=== PATIENT | female | born 1965 | race Caucasian/White ===

== ENCOUNTER 2022-12-06 08:05 | Day surgery (SDC) | payer OTHER ==
[2022-12-06] MEDS ORDERED: BUPIVACAINE 0.5% VIAL IJ ONE (08:06)
[2022-12-06] MEDS ORDERED: Depo-Medrol 40 MG/ML IM ONE (08:06)
[2022-12-06] MEDS ORDERED: DIPRIVAN 200 MG/20 ML IV ONE (09:44)
[2022-12-06] MEDS ORDERED: Lactated Ringers 1,000 ML IV ONE (10:44)
--- NOTE | 2022-12-06 12:24 | XRAY ---
Indication: Left shoulder and subacromial bursa injection. Intraoperative fluoroscopy provided for 20 seconds. 3 digital spot image submitted for interpretation demonstrates medial tip projecting over left glenohumeral joint superiorly. Second needle tip subacromial. Small amount of contrast injected for needle tip placement. Correlate with intraoperative findings/report.
--- NOTE | 2022-12-06 12:24 | XRAY ---
Indication: Right shoulder and subacromial bursa injection. Intraoperative fluoroscopy provided for 16 seconds. 2 digital spot image submitted for interpretation demonstrates medial tip projecting over right glenohumeral joint superiorly. Second needle tip subacromial. Small amount of contrast injected for needle tip placement. Correlate with intraoperative findings/report.
--- NOTE | 2022-12-06 12:26 | XRAY ---
16 seconds of fluoroscopy was used in surgery for a right intra-articular shoulder and subacromial bursa injection.
--- NOTE | 2022-12-06 12:27 | XRAY ---
20 seconds of fluoroscopy was used in surgery for a left intra-articular shoulder and subacromial bursa injection.
== END 2022-12-06 10:15 | disposition home or self-care (01) ==
LOC: SDC-PAIN 08:05
PROVIDERS: ATTEND Psychiatry & Neurology Pain Medicine
DX: M19.012 Primary osteoarthritis, left shoulder (principal); M19.011 Primary osteoarthritis, right shoulder; M75.52 Bursitis of left shoulder; M75.51 Bursitis of right shoulder; E11.9 Type 2 diabetes mellitus without complications; Z79.899 Other long term (current) drug therapy
CPT/HCPCS: 20610; 73030; 77002; 82947; J1030; J2704

== ENCOUNTER 2023-03-14 07:25 | Day surgery (SDC) | payer OTHER ==
[2023-03-14] MEDS ORDERED: Depo-Medrol 40 MG/ML IM ONE (07:26)
[2023-03-14] MEDS ORDERED: BUPIVACAINE 0.5% VIAL IJ ONE (07:26)
[2023-03-14] MEDS ORDERED: DIPRIVAN 200 MG/20 ML IV ONE (09:12)
[2023-03-14] MEDS ORDERED: Lactated Ringers 1,000 ML IV ONE (09:28)
--- NOTE | 2023-03-14 10:04 | XRAY ---
Indication: Right hip injection. Intraoperative fluoroscopy provided for 22 seconds. Single digital spot image submitted for interpretation demonstrates needle tip projecting lateral to the right femur neck. Small amount of contrast injected for needle tip placement. Correlate with intraoperative findings/report.
--- NOTE | 2023-03-14 10:04 | XRAY ---
22 seconds of fluoroscopy was used in surgery for a right intra-articular hip injection.
== END 2023-03-14 09:41 | disposition home or self-care (01) ==
LOC: SDC-PAIN 07:25
PROVIDERS: ATTEND Psychiatry & Neurology Pain Medicine
DX: M16.11 Unilateral primary osteoarthritis, right hip (principal); E11.9 Type 2 diabetes mellitus without complications; Z79.899 Other long term (current) drug therapy
CPT/HCPCS: 20610; 73501; 77002; 82947; J1030; J2704; Q9966

== ENCOUNTER 2023-05-30 07:50 | Day surgery (SDC) | payer OTHER ==
[2023-05-30] MEDS ORDERED: Depo-Medrol 40 MG/ML IM ONE (07:51)
[2023-05-30] MEDS ORDERED: BUPIVACAINE 0.5% VIAL IJ ONE (07:51)
[2023-05-30] MEDS ORDERED: DIPRIVAN 200 MG/20 ML IV ONE (09:36)
[2023-05-30] MEDS ORDERED: Lactated Ringers 1,000 ML IV ONE (10:22)
--- NOTE | 2023-05-30 11:30 | XRAY ---
Indication: Bilateral greater trochanter bursa injection. Intraoperative fluoroscopy provided for 13 seconds. 3 digital spot image submitted for interpretation demonstrates needle tip projecting lateral to left and right greater trochanters. Small amount of contrast injected for both needle tip placement. Correlate with intraoperative findings/report.
--- NOTE | 2023-05-30 12:06 | XRAY ---
13 seconds of fluoroscopy was used in surgery for a bilateral greater trochanteric bursa injection.
== END 2023-05-30 10:05 | disposition home or self-care (01) ==
LOC: SDC-PAIN 07:50
PROVIDERS: ATTEND Psychiatry & Neurology Pain Medicine
DX: M70.62 Trochanteric bursitis, left hip (principal); M70.61 Trochanteric bursitis, right hip; E11.9 Type 2 diabetes mellitus without complications
CPT/HCPCS: 20610; 73521; 77002; 82947; J1030; J2704; Q9966

== ENCOUNTER 2023-06-27 06:46 | Day surgery (SDC) | payer OTHER ==
[2023-06-27] MEDS ORDERED: BUPIVACAINE 0.5% VIAL IJ ONE (06:47)
[2023-06-27] MEDS ORDERED: Depo-Medrol 40 MG/ML IM ONE (06:47)
[2023-06-27] MEDS ORDERED: DIPRIVAN 200 MG/20 ML IV ONE (08:35)
[2023-06-27] MEDS ORDERED: Lactated Ringers 1,000 ML IV ONE (10:54)
--- NOTE | 2023-06-27 11:41 | XRAY ---
Indication: Right knee injection. Intraoperative fluoroscopy provided for 10 seconds. Single digital spot image submitted for interpretation demonstrates needle tip projecting over right femur intracondylar notch. Small amount of contrast injected for needle tip placement. Correlate with intraoperative findings/report.
--- NOTE | 2023-06-27 11:41 | XRAY ---
Indication: Left knee injection. Intraoperative fluoroscopy provided for 5 seconds. Single digital spot image submitted for interpretation demonstrates needle tip projecting over left femur intracondylar notch. Small amount of contrast injected for needle tip placement. Correlate with intraoperative findings/report.
--- NOTE | 2023-06-27 13:07 | XRAY ---
10 seconds of fluoroscopy was used in surgery for a right intra-articular knee injection.
--- NOTE | 2023-06-27 13:08 | XRAY ---
5 seconds of fluoroscopy was used in surgery for a left intra-articular knee injection.
== END 2023-06-27 09:05 | disposition home or self-care (01) ==
LOC: SDC-PAIN 06:46
PROVIDERS: ATTEND Psychiatry & Neurology Pain Medicine
DX: M17.0 Bilateral primary osteoarthritis of knee (principal); E11.9 Type 2 diabetes mellitus without complications
CPT/HCPCS: 20610; 73560; 77002; 82947; J1030; J2704; Q9966

== ENCOUNTER 2023-12-12 07:06 | Day surgery (SDC) | payer OTHER ==
[2023-12-12] MEDS ORDERED: Depo-Medrol 40 MG/ML IM ONE (07:07)
[2023-12-12] MEDS ORDERED: BUPIVACAINE 0.5% VIAL IJ ONE (07:07)
[2023-12-12] MEDS ORDERED: DIPRIVAN 200 MG/20 ML IV ONE (08:17)
--- NOTE | 2023-12-12 09:31 | XRAY ---
Indication: Left shoulder and subacromial bursa injection. Intraoperative fluoroscopy provided for 18 seconds. 2 digital spot images submitted for interpretation demonstrates needle tip projecting over the left glenohumeral joint superiorly. Second needle tip subacromial. Small amount of contrast injected for needle tip placement. Correlate with intraoperative findings/report.
--- NOTE | 2023-12-12 09:31 | XRAY ---
Indication: Right shoulder and subacromial bursa injection. Intraoperative fluoroscopy provided for 14 seconds. 2 digital spot images submitted for interpretation demonstrates needle tip projecting over the right glenohumeral joint superiorly. Second needle tip subacromial. Small amount of contrast injected for needle tip placement. Correlate with intraoperative findings/report.
[2023-12-12] MEDS ORDERED: Lactated Ringers 1,000 ML IV ONE (09:50)
--- NOTE | 2023-12-12 10:28 | XRAY ---
14 seconds of fluoroscopy was used in surgery for a right intra-articular shoulder and subacromial bursa injection.
--- NOTE | 2023-12-12 10:28 | XRAY ---
18 seconds of fluoroscopy was used in surgery for a left intra-articular shoulder and subacromial bursa injection.
== END 2023-12-12 08:50 | disposition home or self-care (01) ==
LOC: SDC-PAIN 07:06
PROVIDERS: ATTEND Psychiatry & Neurology Pain Medicine
DX: M19.012 Primary osteoarthritis, left shoulder (principal); M19.011 Primary osteoarthritis, right shoulder; M75.52 Bursitis of left shoulder; M75.51 Bursitis of right shoulder; E11.9 Type 2 diabetes mellitus without complications
CPT/HCPCS: 20610; 73030; 77002; 82947; J2704; Q9966

== ENCOUNTER 2024-03-12 06:48 | Day surgery (SDC) | payer OTHER ==
[2024-03-12] MEDS ORDERED: Depo-Medrol 40 MG/ML IM ONE (06:49)
[2024-03-12] MEDS ORDERED: BUPIVACAINE 0.5% VIAL IJ ONE (06:49)
[2024-03-12] MEDS ORDERED: Xylocaine-Mpf 2% 5 Ml Vial ONE (08:27)
[2024-03-12] MEDS ORDERED: DIPRIVAN 200 MG/20 ML IV ONE (08:27)
--- NOTE | 2024-03-12 19:04 | XRAY ---
Indication: Left knee injection. Intraoperative fluoroscopy provided for 5 seconds. Single digital spot image submitted for interpretation demonstrates needle tip projecting over left femur intercondylar notch. Small amount of contrast injected for all needle tip placement. Correlate with intraoperative findings/report.
--- NOTE | 2024-03-12 19:04 | XRAY ---
Indication: Right knee injection. Intraoperative fluoroscopy provided for 5 seconds. Single digital spot image submitted for interpretation demonstrates needle tip projecting over right femur intercondylar notch. Small amount of contrast injected for all needle tip placement. Correlate with intraoperative findings/report.
--- NOTE | 2024-03-12 19:22 | XRAY ---
5 seconds of fluoroscopy was used in surgery for a right intra-articular knee injection.
--- NOTE | 2024-03-12 19:23 | XRAY ---
5 seconds of fluoroscopy was used in surgery for a left intra-articular knee injection.
== END 2024-03-12 08:55 | disposition home or self-care (01) ==
LOC: SDC-PAIN 06:48
PROVIDERS: ATTEND Psychiatry & Neurology Pain Medicine
DX: M17.0 Bilateral primary osteoarthritis of knee (principal); E11.9 Type 2 diabetes mellitus without complications
CPT/HCPCS: 20610; 73560; 77002; 82947; J2704; Q9966